=== PATIENT | male | born 1940 | race Caucasian/White ===

== ENCOUNTER → 2018-04-06 | Outpatient (CLI) | payer MEDICARE, BC ==
--- NOTE | 2018-04-06 17:33 | RADIOLOGY REPORT (SQ) ---
EXAM DESCRIPTION: CHEST SINGLE VIEW COMPLETED DATE/TIME: 04/06/2018 5:13 pm REASON FOR STUDY: CHRONIC PAIN SYNDROME COMPARISON: None. EXAM PARAMETERS: NUMBER OF VIEWS: One view. TECHNIQUE: Single frontal radiographic view of the chest acquired. RADIATION DOSE: NA LIMITATIONS: None. FINDINGS: LUNGS AND PLEURA: No opacities, masses or pneumothorax. No pleural effusion. MEDIASTINUM AND HILAR STRUCTURES: No masses. Contour normal. HEART AND VASCULAR STRUCTURES: Heart normal in size. Normal vasculature. BONES: No acute findings. HARDWARE: None in the chest. OTHER: No other significant finding. IMPRESSION: NO ACUTE RADIOGRAPHIC FINDING IN THE CHEST. TECHNICAL DOCUMENTATION: JOB ID: [id number] [employer]- All Rights Reserved Reading location - IP/workstation name: [email or web address]
[2018-04-06 17:59] LABS: APPEARANCE,URINE CLEAR; BILIRUBIN,URINE NEGATIVE (NEGATIVE); COLOR,URINE STRAW; GLUCOSE, URINE NEGATIVE (NEGATIVE); KETONES,URINE NEGATIVE (NEGATIVE); LEUKOCYTE ESTERASE,URINE NEGATIVE (NEGATIVE); NITRITE,URINE NEGATIVE (NEGATIVE); PROTEIN,URINE 30 mg/dL (NEGATIVE); URINE SPECIFIC GRAVITY 1.014; UROBILINOGEN,URINE NEGATIVE mg/dL (<2.0)
[2018-04-06 18:10] LABS: ABSOLUTE EOSINOPHILS # (AUTO) 0.2 10^3/uL (0.0-0.6); ABSOLUTE LYMPHOCYTES (AUTO) 1.1 10^3/uL (0.5-4.7); ABSOLUTE MONOCYTES (AUTO) 0.5 10^3/uL (0.1-1.4); EOSINOPHILS % (AUTO) 4.4 % (0-6); HEMATOCRIT 37.1 % (37.9-51.0); HEMOGLOBIN 12.7 g/dL (13.5-17.0); INTERNATIONAL RATION (INR) 0.87; LYMPHOCYTES % (AUTO) 22.2 % (13-45); MEAN CORPUSCULAR HEMOGLOBIN 33.6 pg (27.0-33.4); MEAN CORPUSCULAR HGB CONC 34.3 g/dL (32.0-36.0); MEAN CORPUSCULAR VOLUME 98 fl (80-97); MONOCYTES % (AUTO) 10.8 % (3-13); PLATELET COUNT 211 10^3/uL (150-450); PROTHROMBIN TIME 12.3 SEC (11.4-15.4); RED BLOOD COUNT 3.79 10^6/uL (4.35-5.55); RED CELL DISTRIBUTION WIDTH 14.5 % (11.5-14.0); SEGMENTED NEUTROPHILS % (AUTO) 61.6 % (42-78); TOTAL CELLS COUNTED % (AUTO) 100 %; WHITE BLOOD COUNT 4.9 10^3/uL (4.0-10.5)
--- NOTE | 2018-04-08 13:25 | EKG REPORT ---
SEVERITY:- BORDERLINE ECG - SINUS RHYTHM PROBABLE LEFT ATRIAL ABNORMALITY BORDERLINE PROLONGED QT INTERVAL : Confirmed by: Ced Mendoza MD 08-Apr-2018 13:24:02
== END ==
LOC: OD 16:38
PROVIDERS: ATTEND Pain Medicine Interventional Pain Medicine
DX: Z01.810 Encounter for preprocedural cardiovascular examination (principal); Z01.812 Encounter for preprocedural laboratory examination; G89.4 Chronic pain syndrome; D68.9 Coagulation defect, unspecified
CPT/HCPCS: 36415; 71045; 81001; 85025; 85610; 85730; 93005; 93010

== ENCOUNTER 2018-04-07 06:27 | Day surgery (SDC) | payer MEDICARE, BC ==
[~2018-04-07 06:27] MED LIST: CEFAZOLIN 1 GM/D5W RTU 1 GM/50 ML RTUPB IV ONE; CEFAZOLIN 1 GM/D5W RTU 1 GM/50 ML RTUPB IV PRN; DEXAMETHASONE SOD PHOSPHATE INJ 4 MG/1 ML VIAL ONE; FENTANYL CITRATE INJ/PF 100 MCG/2 ML AMPUL ONE; LIDOCAINE 2% INJ-PF (20 MG/ML) 10 ML AMPUL ONE; MIDAZOLAM 2 MG/2 ML INJ ONE; ONDANSETRON HCL INJ/PF 4 MG/2 ML SDV ONE; PROPOFOL INJ 200 MG/20 ML VIAL IV ONE; RINGERS SOLUTION,LACTATED 1,000 ML IV PRN
[2018-04-07] MEDS ORDERED: BUPIVACAINE HCL 0.25% /EPINEPHRINE INJ/PF 30 ML SDV ONE (06:45)
[2018-04-07] MEDS ORDERED: LIDOCAINE 1% INJ-PF (10 MG/ML) 30 ML SDV ONE ×2 (06:45→08:35)
[2018-04-07] MEDS ORDERED: SODIUM BICARBONATE 8.4% INJ 50 MEQ/50 ML DISP.SYRIN ONE (06:45)
[2018-04-07] MEDS ORDERED: FAMOTIDINE INJ/PF 20 MG/2 ML SDV IV ONE (07:48)
[2018-04-07] MEDS ORDERED: METOCLOPRAMIDE HCL INJ/PF 10 MG/2 ML SDV ONE (07:49)
[2018-04-07] MEDS ORDERED: MORPHINE SULFATE 10 MG/ML INJ IV PRN (08:21)
[2018-04-07] MEDS ORDERED: DIPHENHYDRAMINE HCL 50 MG/ML VIAL IV PRN (08:21)
[2018-04-07] MEDS ORDERED: FENTANYL CITRATE INJ/PF 100 MCG/2 ML AMPUL IV PRN ×3 (08:21)
[2018-04-07] MEDS ORDERED: MEPERIDINE HCL/PF INJ 25 MG/1 ML DISP.SYRIN IV PRN (08:21)
[2018-04-07] MEDS ORDERED: PROMETHAZINE HCL INJ 25 MG/1 ML VIAL IV PRN ×2 (08:21)
[2018-04-07] MEDS ORDERED: ONDANSETRON HCL INJ/PF 4 MG/2 ML SDV IV PRN (08:21)
[2018-04-07] MEDS: FENTANYL CITRATE INJ/PF 100 MCG/2 ML AMPUL ONE ×2 (09:40→09:45)
[2018-04-07] MEDS ORDERED: CEFAZOLIN INJ 1 GM VIAL ONE (09:40)
[2018-04-07] MEDS ORDERED: OXYCODONE-ACETAMINOPHEN 5-325 MG TABLET PO PRN (09:53)
[2018-04-07] MEDS ORDERED: HYDROMORPHONE HCL INJ/PF 2 MG/ML AMPULE ONE (09:58)
[2018-04-07] MEDS ORDERED: ACETAMINOPHEN 1,000 MG/100 ML RTUPB IV ONE (09:58)
[2018-04-07] MEDS ORDERED: OXYCODONE-ACETAMINOPHEN 5-325 MG TABLET ONE (10:35)
[2018-04-07 11:39] VITALS: BP 114/73
--- NOTE | 2018-04-07 13:21 | EKG REPORT ---
SEVERITY:- NORMAL ECG - SINUS RHYTHM : Confirmed by: Ced Mendoza MD 07-Apr-2018 13:20:35
--- NOTE | 2018-04-07 13:40 | RADIOLOGY REPORT (SQ) ---
EXAM DESCRIPTION: NO CHG FLUORO; THORACOLUMBAR SPINE AP/LAT COMPLETED DATE/TIME: 04/07/2018 1:22 pm REASON FOR STUDY: SPINAL STIMULATOR PLCMT ASST W/ FLUORO IN OR G89.4 CHRONIC PAIN SYNDROME COMPARISON: None. FLUOROSCOPY TIME: 2.7 minutes 9 images saved to PACS. TECHNIQUE: Intra-operative images acquired during surgical procedure to evaluate progress. NUMBER OF IMAGES: 9 LIMITATIONS: None. FINDINGS: Selected images from thoracic neurostimulator placement. IMPRESSION: IMAGE(S) OBTAINED DURING PROCEDURE. COMMENT: Quality ID [id number]: Final reports for procedures using fluoroscopy that document radiation exp osure indices, or exposure time and number of fluorographic images (if radiation exposure indices are not available) Please consult full operative report of the attending physician for description of the procedure. TECHNICAL DOCUMENTATION: JOB ID: [id number] [employer]- All Rights Reserved Reading location - IP/workstation name: [email or web address]
--- NOTE | 2018-04-07 13:40 | RADIOLOGY REPORT (SQ) ---
EXAM DESCRIPTION: NO CHG FLUORO; THORACOLUMBAR SPINE AP/LAT COMPLETED DATE/TIME: 04/07/2018 1:22 pm REASON FOR STUDY: SPINAL STIMULATOR PLCMT ASST W/ FLUORO IN OR G89.4 CHRONIC PAIN SYNDROME COMPARISON: None. FLUOROSCOPY TIME: 2.7 minutes 9 images saved to PACS. TECHNIQUE: Intra-operative images acquired during surgical procedure to evaluate progress. NUMBER OF IMAGES: 9 LIMITATIONS: None. FINDINGS: Selected images from thoracic neurostimulator placement. IMPRESSION: IMAGE(S) OBTAINED DURING PROCEDURE. COMMENT: Quality ID [id number]: Final reports for procedures using fluoroscopy that document radiation exp osure indices, or exposure time and number of fluorographic images (if radiation exposure indices are not available) Please consult full operative report of the attending physician for description of the procedure. TECHNICAL DOCUMENTATION: JOB ID: [id number] [employer]- All Rights Reserved Reading location - IP/workstation name: [email or web address]
--- NOTE | 2018-04-07 19:26 | OPERATIVE REPORT E ---
Operative Report NAME: TABBY POMPA : [id number] AGE: 77Y DATE OF SURGERY: 04/07/2018 ROOM: PREOPERATIVE DIAGNOSIS: POST LAMINECTOMY SYNDROME WITH LUMBAR RADICULOPATHY, CHRONIC PAIN SYNDROME. POSTOPERATIVE DIAGNOSIS: POST LAMINECTOMY SYNDROME WITH LUMBAR RADICULOPATHY, CHRONIC PAIN SYNDROME. OPERATIVE PROCEDURE: Implantation of spinal cord stimulating system with 2 leads and reprogrammable, rechargeable pulse generator, fluoroscopy for needle and lead placement and complex programming. OPERATIVE SURGEON: KIN BENNETT M.D. PSYCHOLOGICAL OPERATIONS: ELDA GARDNER M.D. COMPLICATIONS: None. BLOOD LOSS: Minimal. SPECIMENS REMOVED: None. INDICATION: A history of chronic pain with positive response to outpatient spinal cord stimulation trial. OPERATIVE NOTE: After obtaining informed consent advised the patient of the risks and benefits including serious neurological injury, bleeding, infection, allergic reaction, paralysis, failure to treat pain, aggravation of pain, and he was taken to the operating room and placed comfortably in the prone position. He was prepped and draped in the usual fashion with chlorhexidine with appropriate drying time. A predetermined site over his right gluteal region had been marked for placement of the pulse generator. Fluoroscopy was then utilized to evaluate the spine and a suitable entrance site for the skin incision was made above approximately L2-L3. Local anesthesia with 1% lidocaine with bicarb followed by 0.25% bupivacaine with epinephrine was utilized at both surgical sites. Sharp and blunt dissection were performed down to the appropriate region. In the lumbar region suitable working space was created followed by placement of a Mir. In the gluteal region a suitable working space and compartment for the pulse generator was created approximately 1.5 cm below the skin. Hemostasis was obtained as necessary with electrocautery at both locations. In the lumbar region the paraspinal musculature was anesthetized on the right and left side with 1% lidocaine. Beginning on the left a 6 inch 14-gauge Tuohy needle was inserted to enter into the epidural space at T12-L1 using [id number] to saline. No heme or cerebrospinal fluid or paresthesias were noted. An Octrode lead was placed through this and advanced partially with checking the lateral view to assure posterior location. This was repeated then on the right. Once both leads were in the posterior location they were advanced simultaneously up to the mid region of T8 with the inferior components of the electrode at the mid region of T10. A trial of stimulation was then initiated. Good stimulation pattern was obtained in all necessary locations. The decision was made to implant. Pursestrings with 0 Mersilene were placed around each needle followed by a distal stay suture. The needles were removed with the electrodes being held in place. Lead position was checked multiple times to assure no movement and again appropriate posterior location. The anchors were then placed over the electrodes. The pursestrings were secured and then secured to the anchors. Distal stay sutures were then secured. The wounds were then copiously irrigated. A tunnel was created with 1% lidocaine with bicarb from the post generator pocket to the lumbar incision. The leads were then tunneled without difficulty. The leads were connected to the pulse generator with the left lead taking the port 0 through 7 and the right lead taking port 8 through 15. Then connectivity was established with appropriate impedances. Again, the wounds were irrigated. The pulse generator was placed into the pocket with the label facing upwards. Upwards indicating the skin surface. Both wounds were then closed with interrupted inverted vertical mattress sutures using 3-0 Polysorb. The gluteal region was then taped and cemented with Dermabond and the midline incision was stapled. Sterile dressings were placed and the patient was taken to the PACU for further postoperative care and monitoring. DICTATING PHYSICIAN: ELDA GARDNER M.D. [id number] PHY#: [id number] ID: [id number] JOB#: [id number] ACCT: [id number] cc:ELDA GARDNER M.D. >
== END 2018-04-07 11:45 | disposition home or self-care (01) ==
LOC: OROUT 06:27
PROVIDERS: ATTEND Student in an Organized Health Care Education/Training Program
DX: M96.1 Postlaminectomy syndrome, not elsewhere classified (principal); G89.4 Chronic pain syndrome; E78.5 Hyperlipidemia, unspecified; I10 Essential (primary) hypertension; M19.90 Unspecified osteoarthritis, unspecified site; E11.9 Type 2 diabetes mellitus without complications; F17.210 Nicotine dependence, cigarettes, uncomplicated; M54.17 Radiculopathy, lumbosacral region; K75.9 Inflammatory liver disease, unspecified; Z88.8 Allergy status to other drugs, medicaments and biological substances; Z79.899 Other long term (current) drug therapy; Z79.84 Long term (current) use of oral hypoglycemic drugs; Z79.1 Long term (current) use of non-steroidal anti-inflammatories (NSAID)
CPT/HCPCS: 63685; 63650; 82962; 72080; 93005; 93010; C1778; J2250; J3490 ×4; J0690 ×2; J1100; J3010; J2765; A9270; J1170; J2405; J2704; S0028; J0131; 300